=== PATIENT | female | born 1980 | race Hispanic/Latino ===

== ENCOUNTER 2019-01-07 17:13 | Inpatient (IN) | payer BC, OTHER | END 2019-01-09 19:20 | disposition home or self-care (01) | LOC: LDH 17:13 → WSH 01-08 17:02 | PROC: 10E0XZZ Delivery of Products of Conception, External Approach (ICD-10-PCS; principal; ~2019-01-07) | DX: O80 Encounter for full-term uncomplicated delivery (principal); Z37.0 Single live birth ==

== ENCOUNTER 2019-02-20 06:26 | Day surgery (SDC) | payer BC, OTHER ==
[2019-02-19 14:24] LABS: BASOPHILS % (AUTO) 0.3 % (0.0-5.0); EOSINOPHILS % (AUTO) 1.7 % (0.0-8.0); HEMATOCRIT 40.4 % (36-48); LYMPHOCYTES % (AUTO) 26.7 % (21.0-51.0); MEAN CORPUSCULAR HEMOGLOBIN 27.5 pg (27.0-33.0); MEAN CORPUSCULAR HGB CONC 32.7 g/dL (32.0-36.0); MEAN CORPUSCULAR VOLUME 84.1 fL (79-99); NEUTROPHILS % (AUTO) 66.3 % (40.0-77.0); NUCLEATED RED BLOOD CELLS 0.1 % (0.0-0.19); PLATELET COUNT (AUTO) 235 K/uL (130-400); RED CELL DISTRIBUTION WIDTH 15.2 % (11.0-15.5); WHITE BLOOD COUNT (AUTO) 7.1 K/uL (4.8-10.8)
[2019-02-19 14:33] VITALS: BP 117/69
[2019-02-20] VITALS (16 sets, daily range): BP systolic 107–134; BP diastolic 61–88
[~2019-02-20] VITALS: Ht 157.5 cm; Wt 78.7 kg
[2019-02-20] MEDS ORDERED: LACTATED RINGERS 1000ML 1,000 ML IV ONE (07:36)
[2019-02-20] MEDS ORDERED: DEXAMETHASONE SOD PHOSPHATE 10MG/ML 1ML VIAL ONE (07:37)
[2019-02-20] MEDS ORDERED: ONDANSETRON HCL 4 MG/2 ML VIAL ONE (07:38)
[2019-02-20] MEDS ORDERED: GLYCOPYRROLATE 1 MG/5 ML SYRINGE ONE (07:38)
[2019-02-20] MEDS ORDERED: SUCCINYLCHOLINE 200MG/10ML SYR ONE (07:38)
[2019-02-20] MEDS ORDERED: LIDOCAINE PF 2% 5ML ABBOJECT ONE (07:38)
[2019-02-20] MEDS ORDERED: PROPOFOL 10 MG/ML 20ML VIAL IV ONE (07:38)
[2019-02-20] MEDS ORDERED: MIDAZOLAM HCL 1 MG/ML 2ML VIAL ONE (07:38)
[2019-02-20] MEDS ORDERED: ROCURONIUM 10MG/1ML SYR 10 MG/ML ML ONE ×2 (07:39→07:41)
[2019-02-20] MEDS ORDERED: FENTANYL CITRATE PF 50 MCG/1 ML 2ML VIAL ONE ×2 (07:39→07:51)
[2019-02-20] MEDS ORDERED: NEOSTIGMINE 5MG/5ML SYR IV ONE (07:39)
[2019-02-20] MEDS ORDERED: BUPIVACAINE/PF 0.5% 30ML VIAL ONE (07:43)
[2019-02-20] MEDS ORDERED: CALDOLOR 800MG+NS 250ML 250 ML IV ONE (07:56)
[2019-02-20] MEDS: CEFAZOLIN SODIUM 1 GM VIAL IVP ONE ×2 (08:41→09:15)
--- NOTE | 2019-02-20 08:42 | NUR ---
antibiotic and sterile water and caldolor taken with pt to or
== END 2019-02-20 11:40 | disposition home or self-care (01) ==
LOC: DAH 06:26
PROVIDERS: ATTEND Obstetrics & Gynecology
DX: Z30.2 Encounter for sterilization (principal); E66.9 Obesity, unspecified; I10 Essential (primary) hypertension; N81.6 Rectocele; N81.10 Cystocele, unspecified
CPT/HCPCS: 36415; 58670; 84703; 85025; 86850; 86900; 86901; A4351; C1769 ×2; G0168; J0330; J0690; J1100; J1741; J2001; J2250; J2405; J2704; J2710; J3010 ×2; J3490 ×2; J7030; J7120

== ENCOUNTER → 2022-05-10 | Outpatient (CLI) | payer BC | END | disposition home or self-care (01) | LOC: RAH 07:16 | PROVIDERS: ATTEND Internal Medicine Gastroenterology | DX: R10.13 Epigastric pain (principal); R11.0 Nausea; R14.0 Abdominal distension (gaseous) | CPT/HCPCS: 78264; A9541 ==

== ENCOUNTER → 2023-05-16 | Outpatient (CLI) | payer BC ==
[~2023-05-16] VITALS: Ht 157.5 cm; Wt 77.0 kg
[2023-05-16 09:38] VITALS: BP 136/76; PULSE 72; RESP 16
[2023-05-16 09:40] LABS: BASOPHILS # (AUTO) 0.02 K/uL (0.00-0.20); BASOPHILS % (AUTO) 0.3 % (0.0-5.0); EOSINOPHILS # (AUTO) 0.11 K/uL (0.00-0.70); EOSINOPHILS % (AUTO) 1.6 % (0.0-8.0); HEMATOCRIT 41.1 % (36-48); IMMATURE GRANULOCYTE ABSOLUTE 0.02 K/uL (0-1); LYMPHOCYTES # (AUTO) 2.1 K/uL (1.0-4.8); LYMPHOCYTES % (AUTO) 31.4 % (21.0-51.0); MEAN CORPUSCULAR HEMOGLOBIN 27.2 pg (27.0-33.0); MEAN CORPUSCULAR HGB CONC 32.6 g/dL (32.0-36.0); MEAN CORPUSCULAR VOLUME 83.5 fL (79-99); MONOCYTES # (AUTO) 0.4 K/uL (0.1-1.0); MONOCYTES % (AUTO) 5.4 % (3.0-13.0); NEUTROPHILS # (AUTO) 4.1 K/uL (1.8-7.7); PLATELET COUNT (AUTO) 278 K/uL (130-400); RED BLOOD CELL COUNT(AUTO) 4.92 MIL/uL (4.00-5.50); RED CELL DISTRIBUTION WIDTH 13.3 % (11.0-15.5); WHITE BLOOD COUNT (AUTO) 6.7 K/uL (4.8-10.8)
[2023-05-16 09:50] LABS: CREATININE 0.7 mg/dL (0.5-1.5); POTASSIUM 4.7 mmol/L (3.5-5.1)
[2023-05-16 09:52] LABS: INR < 0.93 (0.85-1.15); PROTHROMBIN TIME 10.4 SEC (9.6-11.6)
[2023-05-16 09:53] LABS: PARTIAL THROMBOPLASTIN TIME 28.7 SEC (26.3-35.5)
== END | disposition home or self-care (01) ==
LOC: EDSTATUS 08:00 → DAH 10:00
PROVIDERS: ATTEND Surgery
DX: Z01.812 Encounter for preprocedural laboratory examination (principal); K81.1 Chronic cholecystitis
CPT/HCPCS: 80048; 84703; 85025; 85610; 85730; 36415; A6260

== ENCOUNTER 2023-06-25 06:22 | Day surgery (SDC) | payer BC ==
[2023-06-21 11:37] VITALS: BP 132/74; PULSE 73; RESP 18
[~2023-06-25] VITALS: Ht 157.5 cm; Wt 73.1 kg
[2023-06-25] VITALS (16 sets, daily range): BP systolic 122–139; BP diastolic 57–73; PULSE 56–77; RESP 12–18
[2023-06-25] MEDS ORDERED: FENTANYL CITRATE PF 50 MCG/1 ML 2ML VIAL ONE (06:55)
[2023-06-25] MEDS ORDERED: PROPOFOL 10 MG/ML 20ML VIAL IV ONE (06:55)
[2023-06-25] MEDS ORDERED: ROCURONIUM 10MG/1ML SYR 10 MG/ML ML ONE (06:55)
[2023-06-25] MEDS ORDERED: LIDOCAINE PF 100MG/5ML (2%) SYRINGE 5ML ONE (06:55)
[2023-06-25] MEDS ORDERED: ACETAMINOPHEN 1,000 MG/100 ML VIAL IV ONE (06:59)
[2023-06-25] MEDS ORDERED: LACTATED RINGERS 1000ML 1,000 ML IV ONE (07:03)
[2023-06-25] MEDS ORDERED: IOHEXOL-350 50ML VIAL IV ONE (07:09)
[2023-06-25] MEDS ORDERED: EPINEPHRINE PF 1MG (1:1,000) 1 MG/ML AMP ONE (08:05)
[2023-06-25] MEDS ORDERED: BUPIVACAINE/PF 0.5% 30ML VIAL ONE (08:05)
[2023-06-25] MEDS ORDERED: MIDAZOLAM HCL 1 MG/ML 2ML VIAL ONE (08:13)
[2023-06-25] MEDS ORDERED: ONDANSETRON 4MG INJ ONE (08:28)
[2023-06-25] MEDS ORDERED: DEXAMETHASONE SOD PHOSPHATE 10MG/ML 1ML VIAL ONE (08:28)
[2023-06-25] MEDS ORDERED: CEFAZOLIN SODIUM 1 GM VIAL ONE (08:44)
[2023-06-25] MEDS ORDERED: GLYCOPYRROLATE 1 MG/5 ML SYRINGE ONE (09:28)
[2023-06-25] MEDS ORDERED: NEOSTIGMINE 5MG/5ML SYR IV ONE (09:29)
[2023-06-25] MEDS ORDERED: DOCU-116 PO (09:41)
[2023-06-25] MEDS ORDERED: GABA-529 PO (09:41)
[2023-06-25] MEDS ORDERED: METH-662 PO (09:41)
[2023-06-25] MEDS ORDERED: TRAM50TA4 PO (09:41)
== END 2023-06-25 11:25 | disposition home or self-care (01) ==
LOC: DAH 06:22
PROVIDERS: ATTEND Surgery
DX: K80.10 Calculus of gallbladder with chronic cholecystitis without obstruction (principal); E78.5 Hyperlipidemia, unspecified; K21.9 Gastro-esophageal reflux disease without esophagitis; Z79.01 Long term (current) use of anticoagulants; Z98.51 Tubal ligation status
CPT/HCPCS: 47563; 64486; 81025; 88304; 74300; A6260; A4663; J7030; A4215 ×2; C1758; J7120; J3010; J0690; J3490; J1100; J2710; J2001; J0171; J2250; J2704; J2405; J0665; Q9967; A4649 ×2; A4223; A4222; A4221; A4600 ×2